=== PATIENT | male | born 1945 | race Native Hawaiian/Other Pacific Islander ===

== ENCOUNTER 2020-09-20 15:22 | Outpatient (CLI) | payer OTHER ==
[2020-09-20 15:40] LABS: PLATELET COUNT 244 K/uL (142-355)
[2020-09-20 15:58] LABS: POTASSIUM 5.5 mmol/L (3.6-5.2)
== END 2020-09-20 19:57 | disposition home or self-care (01) ==
LOC: LAB 15:22
PROVIDERS: ATTEND Nurse Practitioner Family
DX: Z00.00 Encounter for general adult medical examination without abnormal findings (principal); Z79.899 Other long term (current) drug therapy; R53.83 Other fatigue; R53.81 Other malaise; E11.9 Type 2 diabetes mellitus without complications; E78.49 Other hyperlipidemia; I10 Essential (primary) hypertension
CPT/HCPCS: 80053; 80061; 82306; 82607; 82728; 83036; 83540; 84100; 84439; 84443; 85027